=== PATIENT | male | born 1955 | race Caucasian/White ===

== ENCOUNTER 2016-12-17 14:55 | Emergency (ER) | payer OTHER ==
[~2016-12-17] VITALS: Ht 182.9 cm; Wt 111.4 kg
[~2016-12-17 14:55] MED LIST: ASP81TEC; ATEN25TA7; LANS30CA8; Lisinopril; Zyrtec
[2016-12-17 14:57] VITALS: BP 161/93; PULSE 61; RESP 15; O2SAT 98
--- NOTE | 2016-12-17 15:14 | ED.REPORT ---
HPI-Chest Pain 40 and Over Date of Service Dec 17, 2016 ED Provider: Dr. Samuels Pt is an obese 61 year old male with a history of HTN and acid reflux who presents to the ED complaining of sudden, sharp, and non-radiating substernal chest pain that started last night while he was at rest. He c/o associated upper abdominal pain, SOB, and feeling "belching gassiness". He denies nausea, vomiting, diarrhea, and fever. Pt reports that he had a similar episode 20 years ago, which was diagnosed with acid reflux. He took 3 TUMs for the initial symptoms with no relief, and took 2 more TUMs an hour later with relief. After he was at work for 30 minutes today, the abdominal pain and mild chest pain returned. The pt describes the chest pain as a "pressure" or "weight on his chest" today rather than the original sharp pain that he felt last night. The pt had a banana for breakfast with coffee. For dinner last night, the pt ate chicken, green beans, and fruit salad. He did not take TUMs for the pain today. Nursing Notes Stated Complaint: CHEST PAIN Chief Complaint: Chest Pain Nursing Notes Reviewed: Yes Allergies: Coded Allergies: celecoxib (Verified Allergy, Mild, RASH, 05/07/09) hydrochlorothiazide (Verified Allergy, Unknown, 05/07/09) Uncoded Allergies: SULFA (Allergy, Unknown, 05/07/09) Scheduled Famotidine (Pepcid) 40 Mg Tablet 40 MG PO BID Miscellaneous Medications ([Lisinopril]) ([Zyrtec]) Aspirin-Expunged Drug, Do Not Renew! (Aspirin EC-Expunged Drug, Do Not Renew!) 81 Mg Tablet Atenolol-Expunged Drug, Do Not Renew! (Atenolol-Expunged Drug, Do Not Renew!) 25 Mg Tablet Lansoprazole-Expunged Drug, Do Not Renew! (Lansoprazole-Expunged Drug, Do Not Renew!) 30 Mg Capsule.dr Cardona Time Seen by MD: 15:13 Chief Complaint Chest pain Hx Obtained From: Patient Arrived By: Walk-in Sudden in Onset?: Yes Onset Occurred: 5 - 8 hours ago Symptom Duration: Constant Location: : Substernal Quality: Painful Radiation: : Does not radiate Severity: Current: Moderate Severity: Maximum: Moderate Recent Healthcare: Recent doctor visit Similar Sx Previous: Yes Past Medical History Past Medical History Acid reflux Hypertension Arthritis in both knees Past Surgical History right rotator cuff x3 sinus surgery skin grafts cholecystectomy in 2012. Vasectomy Smoking History Former Smoker Social History Alcohol Use: Denies alcohol use Drug Use: Denies drug use Other Social History: Good social support, Ambulatory Status Independent Review of Systems + "belching gassiness" Constitutional: Denies: Fever Respiratory: Reports: Shortness of breath Cardiovascular: Reports: Chest pain GI: Reports: Abdominal pain, Belching, Denies: Diarrhea, Nausea, Vomiting Complete sys rev & neg: except as marked. Physical Exam Initial Vital Signs Vital Signs (First) Date Time Temp Pulse Resp B/P Pulse Ox O2 Delivery O2 Flow Rate FiO2 12/17/16 14:57 35.8 61 15 161/93 98 Room Air Initial VS: Reviewed, Vital signs abnormal ENT: Mucous membranes moist, Conjunctiva normal, No scleral icterus Neck: Supple, Full range of motion Extremities: Vascular intact, Neuro intact Skin: Warm, Dry, No cyanosis Neurologic: Alert, Oriented, Nonfocal Psychiatric: Mood/affect normal, Behavior normal General/Constitutional: Awake, Alert, Cooperative, Not toxic appearing Appearance / Presentation: Positive: Obese Respiratory / Chest: Atraumatic, Breath sounds NL, Breath sounds = bilat, No respiratory distress Cardiovascular: Heart rate NL, Regular rhythm, Heart sounds NL Abdomen: Atraumatic, Soft Non-tender to deep palpation in all four quadrants Interpretation & Diagnostics Lab Results Interpretation Result Diagram: 12/17/16 1615 12/17/16 1615 Test 12/17/16 16:15 White Blood Count 4.2th/mm3 (3.8-10.1) Red Blood Count 5.36mil/mm3 (4.40-5.80) Hemoglobin 16.2g/dL (13.8-17.2) Hematocrit 47.1% (41.0-50.0) Mean Corpuscular Volume 87.9fL (81-100) Mean Corpuscular Hemoglobin 30.2pg (27.0-35.0) Mean Corpuscular Hemoglobin Concent 34.4% (32.0-37.0) Red Cell Distribution Width 12.1% (12.3-15.4) Platelet Count 205bil/L (150-400) Neutrophils (%) (Auto) 48.9% (40-74) Lymphocytes (%) (Auto) 40.2% (14-46) Monocytes (%) (Auto) 8.1% (4-12) Eosinophils (%) (Auto) 1.9% (0-5) Basophils (%) (Auto) 0.7% (0-3) Sodium Level 141mEq/L (134-144) Potassium Level 4.5mEq/L (3.5-5.2) Chloride Level 101mEq/L (97-108) Carbon Dioxide Level 28mmol/L (18-29) Blood Urea Nitrogen 19mg/dL (8-27) Creatinine 1.15mg/dL (0.76-1.27) Estimat Glomerular Filtration Rate 68mL/min (>59) Glucose Level 96mg/dL (60-99) Calcium Level 9.8mg/dL (8.5-10.1) Magnesium Level 2.2mg/dL (1.6-2.6) Total Bilirubin 0.8mg/dL (0.0-1.2) Aspartate Amino Transf (AST/SGOT) 20U/L (0-50) Alanine Aminotransferase (ALT/SGPT) 20U/L (0-44) Alkaline Phosphatase 72U/L (25-160) Troponin T < 0.010ug/L (0.0-0.011) Total Protein 7.1g/dL (6.4-8.4) Albumin 4.4g/dL (3.4-5.0) Hold Brunson Top Tube Received (Received) ECG Interpretation Time: 16:36 Interpreted by: ED physician Normal ECG Interpretation: Normal ECG w/ rate of... (58), Normal rate, Normal sinus rhythm, No acute ischemic changes, Normal QRS, Normal axis, Normal intervals, Adequate tracing X-Ray Chest Interpretation Chest Xray Interpretation: IMPRESSION: No acute cardiopulmonary disease. Dictated by: Jaida Marinelli M.D. on 12/17/2016 at 15:30 View: Portable, 1 view Interpretation / Wet Read by: Interpret - Radiologist Re-Eval/Medical Decision Med Decision/Clinical Course Overall patient felt like this was an episode of acid reflux but was encouraged to come in. His symptoms have improved after GI cocktail, his EKG chest x-ray and troponin are unremarkable and the patient again reports that this is similar to the innumerable episodes of acid reflux that he has had in many years. After discussion, the patient is agreeable to discharge home with close outpatient follow-up. Pepcid was prescribed. Return precautions given. Source of Hx: Old records Time of Eval: 16:40 Re-Evaluation/Progress Note: Pt rechecked. Pt was still having mild discomfort, but reports that he feels fine. On further questioning, the triage nurse at his PCP made him come over. He is fairly certain that it is acid reflux, which is consistent with his previous symptoms. Informed pt of plan for discharge. Pt understands and agrees with plan for discharge. F/U instructions and RTER warnings given. All questions addressed. Counseled Regarding: Diagnosis, Lab results, Need for follow-up, When/why to return to ED Discharge & Departure Primary Impression: Acid reflux Esophagitis presence: without esophagitis Qualified Code: K21.9 - Gastro- esophageal reflux disease without esophagitis Disposition: Home Discharge Condition All VS Reviewed: Yes Condition: Stable Patient Instructions: Angina (ED) Additional Instructions: Your EKG, chest x-ray and labs are reassuring. There is no evidence of cardiac ischemia right now. Take Pepcid to help with your acid reflux feeling. Return to ER for any concerning signs or symptoms. Referrals: Kana Price MD (PCP) Scribe Attestation Portions of this note were transcribed by Donato Álvarez and Melyssa Jimenez. I, Dr. Samuels personally performed the history, physical exam and medical decision-making; I reviewed and confirmed the accuracy of the information in the transcribed note. Signed by: Donato Álvarez and Charlene Posadas, 12/17/16 and 16:50. copies to: Kana Price MDNixon Richardson Dec 17, 2016 15:14 Melyssa Berman Dec 17, 2016 15:26 DONATO ÁLVAREZ Dec 17, 2016 16:34
[2016-12-17] MEDS ORDERED: LidocaineVisc 2%:Antacid 1:1 10 mL Syringe PO ONE (15:15)
--- NOTE | 2016-12-17 15:33 | DRSVH ---
PROCEDURE: X-RAY CHEST ONE VIEW, PORTABLE ([id number]) INDICATIONS: CHEST PAIN TECHNIQUE: One view of the chest was acquired. COMPARISON: [facility], CR, CHEST 1VW (PORTABLE), 02/14/2014, 12:03. FINDINGS: Surgical changes and devices: None. Lungs and pleura: No pleural effusions or pneumothorax. Lungs are clear. Mediastinum: Mediastinal contours appear normal. Heart size is normal. Bones and chest wall: No suspicious bony lesions. Overlying soft tissues appear unremarkable. IMPRESSION: No acute cardiopulmonary disease. Dictated by: Jaida Marinelli M.D. on 12/17/2016 at 15:30 Approved by: Jaida Marinelli M.D. on 12/17/2016 at 15:31
[2016-12-17 16:30] LABS: BASOPHILS % (AUTO) 0.7 % (0-3); EOSINOPHILS % (AUTO) 1.9 % (0-5); MONOCYTES % (AUTO) 8.1 % (4-12); Mean Corpuscular Hemoglobin 30.2 pg (27.0-35.0); Mean Corpuscular Volume 87.9 fL (81-100); NEUTROPHILS % (AUTO) 48.9 % (40-74); Platelet Count 205 bil/L (150-400)
[2016-12-17 17:09] VITALS: BP 148/92; PULSE 84; RESP 20; O2SAT 98
[2016-12-17 17:10] LABS: Magnesium 2.2 mg/dL (1.6-2.6)
[2016-12-17 17:11] LABS: TROPONIN T < 0.010 ug/L (0.0-0.011)
[2016-12-17] MEDS ORDERED: FAMO40TA72 PO (17:16)
== END 2016-12-17 17:25 | disposition home or self-care (01) ==
LOC: SED 14:55
DX: K21.9 Gastro-esophageal reflux disease without esophagitis (principal); I10 Essential (primary) hypertension; E66.9 Obesity, unspecified; R07.2 Precordial pain; Z79.82 Long term (current) use of aspirin; Z88.2 Allergy status to sulfonamides; Z88.8 Allergy status to other drugs, medicaments and biological substances